=== PATIENT | female | born 1980 | race Caucasian/White ===

== ENCOUNTER 2018-03-05 17:01 | Emergency (ER) | payer MEDICAID ==
[~2018-03-05] VITALS: Ht 149.9 cm; Wt 61.2 kg
[2018-03-05 17:22] VITALS: Ht 149.9 cm; Wt 61.2 kg
[2018-03-05 17:54] VITALS: BP 142/71
== END 2018-03-05 17:54 | disposition home or self-care (01) ==
LOC: ED 17:01
DX: K11.20 Sialoadenitis, unspecified (principal)

== ENCOUNTER 2019-03-20 19:54 | Emergency (ER) | payer MEDICAID ==
[~2019-03-20] VITALS: Ht 149.9 cm; Wt 63.5 kg
[2019-03-20 19:59] VITALS: Ht 149.9 cm; Wt 63.5 kg
[2019-03-20 21:05] VITALS: BP 105/75
== END 2019-03-20 21:05 | disposition home or self-care (01) ==
LOC: ED 19:54
DX: G51.0 Bell's palsy (principal); Z98.890 Other specified postprocedural states